=== PATIENT | female | born 1965 | race Caucasian/White ===

== ENCOUNTER 2024-11-28 10:13 | Emergency (ER) | payer BC ==
[~2024-11-28] VITALS: Ht 172.7 cm; Wt 104.8 kg
--- OUTSIDE RECORDS SUMMARY | ~2024-11-28 | XMS | Continuity of Care Document ---
Demographics + + + | Address | [address] | | | [place] [id number] | + + + | Preferred Language | Unknown | + + + | Marital Status | | + + + | Congregation Affiliation | [employer]ism (non-Pentecostal, non-specific) | + + + | Race | White | + + + | Ethnic Group | Unknown | + + + Author + + + | Author | [facility] | + + + | Organization | [facility] | + + + | Address | [address] | | | [place] [address] | + + + | Phone | | + + + Care Team Providers + + + + | Care Child Care Teacher Name | Role | Phone | + + + + Unavailable | Unavailable | + + + + Allergies No information. Encounters No information. Functional Status No information. Immunizations No information. Medications No information. Problems + + + + | date | description | facility | + + + + | 2024-11-18 15:26 | Frequency of micturition | [facility] | + + + + Procedures No information. Results/Labs No information. Social History +--------+ + + | date | description | facility | +--------+ + + Vital Signs No information."
[~2024-11-28 10:13] MED LIST: CELEXA40 MG PO; MACROBID 100 M100 MG PO; NORCO 5-325 TA1 EACH PO; PYRIDIUM200 MG PO
[2024-11-28] MEDS ORDERED: OMEPRAZOLE40 MG PO (10:58)
[2024-11-28] MEDS ORDERED: TOPIRAMATE25 MG PO (10:58)
[2024-11-28] MEDS ORDERED: DRIZALMA SPRINK60 MG PO (10:59)
[2024-11-28] MEDS ORDERED: ondansetron HCL 4 MG/2 ML VIAL IV PRN (11:00)
[2024-11-28] MEDS ORDERED: KETOROLAC TROMETHAMINE 15 MG/ML VIAL IV ONE (11:00)
[2024-11-28 11:03] LABS: BASOPHILS 0.9 % (0.1-1.2); EOSINOPHILS 2.3 % (0.7-5.8); HEMATOCRIT 46.8 % (34.1-44.9); MCH 29.3 PG (25.6-32.2); MCHC 34.2 g/dL (32.2-35.5); MCV 85.7 fL (79.4-94.8); MONOCYTES 7.1 % (4.7-12.5); NEUTROPHILS 61.6 % (34.0-71.1); PLATELET COUNT 323 K/uL (182-369); RBC 5.46 M/uL (3.93-5.22)
[2024-11-28 11:16] LABS: ALBUMIN 4.1 g/dL (3.4-5.0); ALBUMIN/GLOBULIN RATIO 1.08 (1.1-2.4); ANION GAP 16.2 (7-21); BILIRUBIN, TOTAL 0.8 mg/dL (0.2-1.0); BUN/CREATININE RATIO 18.18 (6.0-28.6); CALCIUM 9.4 mg/dL (8.5-10.1); CREATININE, SERUM 0.99 mg/dL (0.55-1.02); POTASSIUM 4.2 mmol/L (3.5-5.1); PROTEIN, TOTAL 7.9 g/dL (6.4-8.2)
[2024-11-28 11:51] LABS: BILIRUBIN, URINE NEGATIVE (negative); BLOOD/HGB, URINE MODERATE (Negative); KETONE, URINE NEGATIVE (Negative); LEUK ESTERASE, URINE TRACE (negative); NITRITE, URINE NEGATIVE (negative)
[2024-11-28 11:56] LABS: EPITHELIAL CELLS, URINE SQUAMOUS 1+ /lpf (0-1+)
[2024-11-28 11:57] LABS: BACTERIA, URINE 1+ /hpf (negative); CASTS, URINE NONE SEEN \\lpf; COLLECTION TYPE, URINE CLEAN CATCH; CRYSTALS, URINE NONE SEEN (0-1+); REFLEX CULTURE, URINE No (No)
[2024-11-28] MEDS ORDERED: CEFTRIAXONE SODIUM 1 GM in SODIUM CHLORIDE 0.9% 100 ML IV ONE (13:15)
[2024-11-28] MEDS ORDERED: CEPHALEXIN500 MG PO (13:18)
[2024-11-28 14:23] VITALS: BP 122/72
--- NOTE | 2024-11-28 22:50 | EKG ---
[facility] [address] [facility] [place] [address] Signed Normal sinus rhythm Normal ECG No previous ECGs available Confirmed by Barbara Garcia MD () on 11/28/2024 10:50:46 PM Electronically Signed By: BARBARA GARCIA MD 11/28/24 2250 PATIENT NAME: MAHSA ALVAREZ Electrocardiogram DATE OF : 67 PHYSICIAN: BARBARA GARCIA MD REPORT #: [id number] REPORT IS CONFIDENTIAL AND NOT TO BE RELEASED WITHOUT AUTHORIZATION
== END 2024-11-28 14:24 | disposition home or self-care (01) ==
LOC: ED 10:13
PROVIDERS: Emergency Medicine
DX: N39.0 Urinary tract infection, site not specified (principal); R91.1 Solitary pulmonary nodule; K21.9 Gastro-esophageal reflux disease without esophagitis
CPT/HCPCS: 36415; 74176; 80053; 81001; 84484; 85025; 93005; 93010; 96374; 96375; 99284-25; J0696; J1885; J2405